=== PATIENT | female | born 1940 | race Caucasian/White ===

== ENCOUNTER 2017-05-03 11:48 | Inpatient (IN) | payer OTHER, BC ==
[~2017-05-03] VITALS: Ht 165.1 cm; Wt 84.3 kg
[~2017-05-03 11:48] MED LIST: ACETAMINOPHEN500 MG PO; ACIDOPHILUS1 EAC4 PO; ASPIRIN81 M2 PO; CO Q-10100 MG PO; LEVOTHYROXINE88 MCG PO; MEDROL DOSEPAK4 MG PO; MYRBETRIQ50 MG PO; NEXIUM20 MG PO; ONE-A-DAY WOME1 EAC1 PO; PERCOCET 5/31 TABLET PO; PRAVACHOL40 MG PO; PRAVASTATIN SOD40 MG PO; PROZAC40 MG PO; VALIUM5 MG PO; VESICARE10 MG PO
[2017-05-03 13:09] LABS: HEMATOCRIT 38.4 % (36.0-46.0); MCH 30.5 PG (29.0-34.0); MCHC 33.1 G/DL (30.0-36.0); MCV 92.1 FL (83-99); PLATELET COUNT 226 K/uL (156-360); RBC DIS.WIDTH-CV 13.6 % (11.8-14.6); RBC DIS.WIDTH-SD 46.3 % (39-53); RED BLOOD COUNT 4.17 M/uL (3.80-5.20); WHITE BLOOD COUNT 6.4 K/uL (4.1-10.2)
[2017-05-03 13:11] LABS: CARBON DIOXIDE (BICARBONATE) 26.3 MEQ/L (20-31)
[2017-05-03 13:17] LABS: CHLORIDE 104 mEq/L (99-109); POTASSIUM 3.2 mEq/L (3.7-5.4); SODIUM 141 mEq/L (136-147)
[2017-05-03 13:19] LABS: GLUCOSE 125 mg/dL (70-99)
[2017-05-03 13:21] LABS: ANION GAP 14 MEQ/L (2-14)
[2017-05-03 13:23] LABS: GFR ESTIMATE (CALCULATED) 58 mL/min/
[2017-05-03 13:24] LABS: UREA NITROGEN (BUN) 10 mg/dL (9-23)
[2017-05-03 13:30] LABS: TROP-I INTERPRETATION POSITIVE
[2017-05-03 13:32] LABS: TROPONIN-I 0.85 ng/mL (0.0-0.30)
[2017-05-03] MEDS ORDERED: NEXIUM40 MG PO (14:41)
[2017-05-03 15:11] LABS: ADD MIUA? YES; BILIRUBIN NEGATIVE; BLOOD SMALL; COLOR YELLOW ((YELLOW)); GLUCOSE (STRIP) NEGATIVE; KETONES NEGATIVE; LEUKOCYTES TRACE; NITRITE NEGATIVE; PROTEIN (STRIP) NEGATIVE; SPECIFIC GRAVITY 1.014 (1.000-1.030); UROBILINOGEN 0.2 MG/DL (0.2-1.0)
[2017-05-03 15:17] LABS: BACTERIA RARE /HPF; EPITHELIAL CELLS RARE /HPF; MUCUS TRACE /LPF; UCUL ADDED? NO; WHITE BLOOD CELLS 0-5 /HPF (0-5)
[2017-05-03 16:54] VITALS: BP 111/61
[2017-05-03 19:25] VITALS: BP 117/56
[2017-05-03 20:08] LABS: TROP-I INTERPRETATION INDETERMINATE; TROPONIN-I 0.53 ng/mL (0.0-0.30)
[2017-05-03 23:00] LABS: INFLUENZA A VIRAL ANTIGEN NEGATIVE; INFLUENZA B VIRAL ANTIGEN NEGATIVE
[2017-05-04 00:15] VITALS: BP 113/59
[2017-05-04 02:28] LABS: HEMATOCRIT 35.7 % (36.0-46.0); MCH 30.3 PG (29.0-34.0); MCHC 33.1 G/DL (30.0-36.0); MCV 91.8 FL (83-99); PLATELET COUNT 220 K/uL (156-360); RBC DIS.WIDTH-CV 13.8 % (11.8-14.6); RED BLOOD COUNT 3.89 M/uL (3.80-5.20)
[2017-05-04 02:39] LABS: CHLORIDE 108 mEq/L (99-109); SODIUM 140 mEq/L (136-147)
[2017-05-04 02:42] LABS: GLUCOSE 144 mg/dL (70-99)
[2017-05-04 02:43] LABS: ANION GAP 8 MEQ/L (2-14)
[2017-05-04 02:44] LABS: TOTAL BILIRUBIN 0.3 mg/dL (0.0-1.0)
[2017-05-04 02:45] LABS: ALKALINE PHOSPHATASE 77 IU/L (3-129); GFR ESTIMATE (CALCULATED) > 59 mL/min/
[2017-05-04 02:46] LABS: UREA NITROGEN (BUN) 14 mg/dL (9-23)
[2017-05-04 02:48] LABS: TROP-I INTERPRETATION POSITIVE
[2017-05-04 02:51] LABS: POTASSIUM 4.9 mEq/L (3.7-5.4)
[2017-05-04 02:53] LABS: TROPONIN-I 0.73 ng/mL (0.0-0.30)
[2017-05-04 05:00] VITALS: BP 111/60
[2017-05-04 08:00] VITALS: BP 118/65
[2017-05-04 14:45] VITALS: BP 119/70
[2017-05-04 18:55] VITALS: BP 99/58
[2017-05-04 23:35] VITALS: BP 104/53
[2017-05-05 03:40] VITALS: BP 135/65
[2017-05-05 07:38] VITALS: BP 128/59
[2017-05-05 09:11] LABS: HEMATOCRIT 33.8 % (36.0-46.0); MCH 30.4 PG (29.0-34.0); MCHC 32.2 G/DL (30.0-36.0); MCV 94.4 FL (83-99); MEAN PLAT.VOLUME 9.1 uM^3 (9.5-12.4); PLATELET COUNT 226 K/uL (156-360); RBC DIS.WIDTH-SD 48.9 % (39-53); RED BLOOD COUNT 3.58 M/uL (3.80-5.20); WHITE BLOOD COUNT 8.2 K/uL (4.1-10.2)
[2017-05-05 09:30] LABS: ANION GAP 7 MEQ/L (2-14); CHLORIDE 110 MEQ/L (99-109); SAMPLE HEMOLYSIS CHECK 0; SAMPLE ICTERIC CHECK 0; SAMPLE LIPEMIA CHECK 0; SODIUM 144 MEQ/L (136-147)
[2017-05-05 09:34] LABS: POTASSIUM 3.8 MEQ/L (3.7-5.4)
[2017-05-05 09:36] LABS: GFR ESTIMATE (CALCULATED) > 59 mL/min/; UREA NITROGEN (BUN) 11 mg/dL (9-23)
[2017-05-05 09:37] LABS: GLUCOSE 104 mg/dL (70-99)
[2017-05-05 09:40] LABS: TROP-I INTERPRETATION POSITIVE; TROPONIN-I 0.89 ng/mL (0.0-0.30)
[2017-05-05 11:17] VITALS: BP 115/60
[2017-05-05] MEDS ORDERED: GUAIFENESI100 MG/5 M PO (13:25)
[2017-05-05] MEDS ORDERED: PREDNISONE20 MG PO (13:28)
[2017-05-05] MEDS ORDERED: CEFDINIR300 MG PO (13:28)
[2017-05-05] MEDS ORDERED: ASPIR-LOW81 MG PO (13:48)
== END 2017-05-05 17:24 | disposition home or self-care (01) | DRG 281 ==
LOC: EME 11:48 → 4EAST 14:00 → EDOF 14:00 → ENRESERV 14:01 → 4EAST 15:39
PROVIDERS: Emergency Medicine; Hospitalist; Internal Medicine
PROC: B2151ZZ Fluoroscopy of Left Heart using Low Osmolar Contrast (ICD-10-PCS; principal; 2017-05-04)
PROC: B2111ZZ Fluoroscopy of Multiple Coronary Arteries using Low Osmolar Contrast (ICD-10-PCS; principal; 2017-05-04)
PROC: 4A023N7 Measurement of Cardiac Sampling and Pressure, Left Heart, Percutaneous Approach (ICD-10-PCS; principal; 2017-05-04)
DX: I21.4 Non-ST elevation (NSTEMI) myocardial infarction (principal); I25.10 Atherosclerotic heart disease of native coronary artery without angina pectoris; J20.9 Acute bronchitis, unspecified; N39.0 Urinary tract infection, site not specified; E87.2 Acidosis; R00.0 Tachycardia, unspecified; Z91.14 Patient's other noncompliance with medication regimen; E06.3 Autoimmune thyroiditis; E78.5 Hyperlipidemia, unspecified; F32.9 Major depressive disorder, single episode, unspecified; F41.9 Anxiety disorder, unspecified; K21.9 Gastro-esophageal reflux disease without esophagitis; Z96.651 Presence of right artificial knee joint; Z79.82 Long term (current) use of aspirin
CPT/HCPCS: 71020; 80048; 80053; 81003; 82803; 83605; 83880; 84484; 85027; 87040; 87502; 93005; 93306; 94640; 99202; 99281; 99285; C1769; C1887; J0696; J1100; J1644; J2250; J2543; J3010; J7030; J7040; J7050; J7512

== ENCOUNTER 2017-05-15 12:33 | Emergency (ER) | payer OTHER, BC ==
[~2017-05-15] VITALS: Ht 165.1 cm; Wt 78.9 kg
[~2017-05-15 12:33] MED LIST changes: +ASPIR-LOW81 MG PO; +CEFDINIR300 MG PO; +GUAIFENESI100 MG/5 M PO; +NEXIUM40 MG PO; +PREDNISONE20 MG PO
[2017-05-15] MEDS ORDERED: VALIUM2 MG PO (16:18)
[2017-05-15] MEDS ORDERED: MOTRIN600 MG PO (16:18)
[2017-05-15] MEDS ORDERED: ULTRACET1 TABLET PO (16:18)
[2017-05-15 17:09] VITALS: BP 113/80
== END 2017-05-15 17:11 | disposition home or self-care (01) ==
LOC: EME 12:33
DX: S16.1XXA Strain of muscle, fascia and tendon at neck level, initial encounter (principal); S00.83XA Contusion of other part of head, initial encounter; W20.8XXA Other cause of strike by thrown, projected or falling object, initial encounter; Y92.810 Car as the place of occurrence of the external cause; F32.9 Major depressive disorder, single episode, unspecified
CPT/HCPCS: 99281; 99283; J3010